=== PATIENT | male | born 1980 | race Caucasian/White ===

== ENCOUNTER → 2021-09-03 | Outpatient (REF) | payer OTHER | LOC: M SFHCDERM 15:59 | PROVIDERS: ATTEND Nurse Practitioner Family | DX: D22.5 Melanocytic nevi of trunk (principal) ==

== ENCOUNTER → 2021-11-04 | Outpatient (REF) | LOC: M RAD 11:26 | PROVIDERS: ATTEND Physician Assistant Medical | DX: M25.78 Osteophyte, vertebrae (principal); M51.36 Other intervertebral disc degeneration, lumbar region; M51.37 Other intervertebral disc degeneration, lumbosacral region ==

== ENCOUNTER 2021-12-19 08:27 | Day surgery (SDC) | payer BC, OTHER ==
[~2021-12-19] VITALS: Ht 167.6 cm; Wt 95.2 kg
[~2021-12-19 08:27] MED LIST: AMLO1TAB24 PO; BUPR-71 PO; CRES20TA2 PO; CYCL-707 PO; ECOT81TA5 PO; FENO145T7 PO; NIAC500T64 PO; OMEG10002 PO; RISP0.253 PO; ceFAZolin SOD 2 GM in IV 1 EA IV ONE
[2021-12-19] MEDS ORDERED: LR 1,000 ML IV SCH (09:40)
[2021-12-19] MEDS ORDERED: MIDAZOLAM INJ 2MG/2ML VIAL (J2250 PER 1MG) As Ordered ONE (11:44)
[2021-12-19] MEDS ORDERED: fentaNYL 100 MCG/2 ML INJECTION As Ordered ONE (11:44)
[2021-12-19] MEDS ORDERED: propofoL 200 MG/20 ML VIAL As Ordered ONE ×2 (11:46→13:13)
[2021-12-19] MEDS ORDERED: LIDOCAINE 2% 100MG/5ML SDV (FOR ANES.) As Ordered ONE (11:47)
[2021-12-19] MEDS ORDERED: BUPIVACAINE/EPIN 0.25% 30 ML VIAL As Ordered ONE (12:32)
[2021-12-19] MEDS ORDERED: PHENYLephrine 500MCG 5ML (100MCG/ML) SYRINGE As Ordered ONE (13:13)
[2021-12-19] MEDS ORDERED: ePHEDrine SULFATE 25 MG/5 ML(5MG/ML) SYRINGE As Ordered ONE (13:14)
[2021-12-19 14:10] VITALS: BP 136/64
== END 2021-12-19 14:15 | disposition home or self-care (01) ==
LOC: M SDC 08:27
PROVIDERS: ATTEND Surgery
DX: D48.5 Neoplasm of uncertain behavior of skin (principal); I10 Essential (primary) hypertension; E78.5 Hyperlipidemia, unspecified; F41.9 Anxiety disorder, unspecified; G43.909 Migraine, unspecified, not intractable, without status migrainosus; F17.210 Nicotine dependence, cigarettes, uncomplicated; F12.10 Cannabis abuse, uncomplicated; Z79.899 Other long term (current) drug therapy
CPT/HCPCS: 11402; 88305; J0690; J2250; J2370; J3010